=== PATIENT | female | born 1995 | race Caucasian/White ===

== ENCOUNTER 2023-05-29 04:21 | Inpatient (IN) | payer OTHER ==
[2023-05-29] MEDS ORDERED: Lidocaine 1% 50 ML MDV INJECT PRN (05:01)
[2023-05-29] MEDS ORDERED: Sodium Chloride 0.9% 10 ML Syringe FLUSH PRN (05:01)
[2023-05-29] MEDS ORDERED: Nalbuphine 10 MG/0.5 ML Syringe IVPUSH PRN (05:01)
[2023-05-29] MEDS ORDERED: Oxytocin/Lactated Ringers 10 UNIT/1,000 ML BAG IV SCH (05:15)
[2023-05-29] MEDS ORDERED: Lactated Ringers 1,000 ML IV SCH (05:15)
[2023-05-29 05:37] LABS: BASOPHILS ABSOLUTE AUTO 0.02 K/mm3 (0.01-0.08); BASOPHILS PERCENT AUTO 0.2 % (0.1-1.2); EOSINOPHILS PERCENT AUTO 0 (0.7-5.8); HEMATOCRIT 41.2 % (34.1-44.9); HEMOGLOBIN 13.6 gm/dl (11.2-15.7); IMMATURE GRAN ABSOLUTE AUTO 0.04 K/mm3 (0.00-0.10); IMMATURE GRAN PERCENT AUTO 0.4 % (<=1.0); LYMPHOCYTES ABSOLUTE AUTO 1.06 K/mm3 (1.18-3.74); LYMPHOCYTES PERCENT AUTO 10.8 % (19.3-51.7); MEAN CORPUSCULAR HEMOGLOBIN 30.2 pg (25.6-32.2); MEAN CORPUSCULAR VOLUME 91.4 fl (79.4-94.8); MEAN PLATELET VOLUME 9.3 fl (9.4-12.3); MONOCYTES ABSOLUTE AUTO 0.51 K/mm3 (0.24-0.36); MONOCYTES PERCENT AUTO 5.2 % (4.7-12.5); NEUTROPHILS ABSOLUTE AUTO 8.14 K/mm3 (1.56-6.13); NEUTROPHILS PERCENT AUTO 83.4 % (34.0-71.1); PLATELET COUNT,PLT 177 K/mm3 (182-369); RED BLOOD CELL COUNT 4.51 M/mm3 (3.98-5.22); WHITE BLOOD CELL COUNT,WBC 9.77 K/mm3 (3.98-10.04)
[2023-05-29] MEDS ORDERED: Witch Hazel Medicated Pads 40/Jar TOP PRN (08:36)
[2023-05-29] MEDS ORDERED: Benzocaine/Menthol 20%-0.5% Spray 78 GM Cannister TOP PRN (08:36)
[2023-05-29] MEDS ORDERED: Acetaminophen 325 MG Tab PO PRN (08:36)
[2023-05-29] MEDS ORDERED: Sodium Chloride 0.9% 10 ML Syringe FLUSH SCH (09:00)
[2023-05-29] MEDS: Ibuprofen 600 MG Tab PO PRN (18:30)
[2023-05-30] MEDS: Ibuprofen 600 MG Tab PO PRN (04:41)
== END 2023-05-30 14:49 | disposition home or self-care (01) | DRG 807 ==
LOC: JD.OBCHECK 04:21 → JD.OB 04:29 → JD.OBCHECK 04:38 → JD.OB 04:47 → UNDOADMOB 04:47 → JD.OB 05:01 → OBSVTOIN 07:15 → JD.OB 07:16
PROVIDERS: ADMIT Family Medicine; ATTEND Family Medicine
PROC: 10E0XZZ Delivery of Products of Conception, External Approach (ICD-10-PCS; principal; 2023-05-29)
PROC: 0KQM0ZZ Repair Perineum Muscle, Open Approach (ICD-10-PCS; 2023-05-29)
PROC: 3E0R3BZ Introduction of Anesthetic Agent into Spinal Canal, Percutaneous Approach (ICD-10-PCS; 2023-05-29)
PROC: 00HU33Z Insertion of Infusion Device into Spinal Canal, Percutaneous Approach (ICD-10-PCS; 2023-05-29)
PROC: 3E033VJ Introduction of Other Hormone into Peripheral Vein, Percutaneous Approach (ICD-10-PCS; 2023-05-29)
DX: O48.0 Post-term pregnancy (principal); Z37.0 Single live birth; O42.92 Full-term premature rupture of membranes, unspecified as to length of time between rupture and onset of labor; O69.81X0 Labor and delivery complicated by cord around neck, without compression, not applicable or unspecified; O70.1 Second degree perineal laceration during delivery; Z3A.40 40 weeks gestation of pregnancy
CPT/HCPCS: 36415; 59025; 59409; 85025; 86592; A9270-GY; J2001; J2590; J7120